=== PATIENT | female | born 2005 | race Caucasian/White ===

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

== ENCOUNTER 2025-03-05 14:43 | Emergency (ER) | payer OTHER, SELFPAY ==
[2025-03-05 14:51] VITALS: BP 132/83; PULSE 102; RESP 16; TEMP 36.8; O2SAT 94; BMI 21.9
[2025-03-05 15:12] LABS: Basophils # 0.1 10^3/uL (0.0-0.1); Basophils % 0.4 %; Hematocrit 41.9 % (36-47); Lymphocytes # 1.3 10^3/uL (1.5-6.5); Lymphocytes % 10.9 %; Mean Corpuscular HGB Conc 35.6 g/dL (30-55); Mean Corpuscular Hemoglobin 29.5 pg (27-33); Mean Platelet Volume 11.6 fL (7.4-10.4); Monocytes # 0.6 10^3/uL (0.2-0.9); Monocytes % 5.2 %; Neutrophils # 9.83 10^3/uL (1.8-8.0); Neutrophils % 83.2 %; Nucleated Red Blood Cells % 0 %; Platelet Count 323 10^3/cmm (157-399); Red Blood Count 5.05 10^6/uL (3.85-5.65); Red Cell Distribution Width 11.9 % (12.1-15.1); White Blood Count 11.82 10^3/uL (4.5-13.0)
[2025-03-05 15:29] LABS: HCG, Serum Qual Negative (Negative)
[2025-03-05 15:37] LABS: Alanine Aminotransferase 13 U/L (0-33); Albumin Level 5.3 g/dL (3.5-5.2); Alkaline Phosphatase 74 U/L (35-105); Anion Gap 20.4 (5-19); Aspartate Amino Transferase 19 U/L (0-32); Blood Urea Nitrogen 6 mg/dL (6-20); Calcium 10.1 mg/dL (8.5-10.5); Carbon Dioxide 23 mmol/L (22-29); Chloride 102 mmol/L (98-107); Creatinine Clr Calc Pharmacy 143.4558; Glomerular Filtration Rate 128.8 mL/min (90-130); Glucose 97 mg/dL (65-115); Lipase 21 U/L (13-60); Osmolality Calculated 292 mOsm/kg (285-295); Potassium 3.4 mmol/L (3.5-5.1); Sodium 142 mmol/L (136-145); Total Bilirubin 0.6 mg/dL (0.15-1.2); Total Protein 8.3 g/dL (6.6-8.7)
--- NOTE | 2025-03-05 16:26 | CTR_ITS ---
PROCEDURE INFORMATION: Exam: CT Abdomen And Pelvis With Contrast Exam date and time: 03/05/2025 5:02 PM Age: 19 years old Clinical indication: Abdominal pain; Additional info: Abd pain TECHNIQUE: Imaging protocol: Computed tomography of the abdomen and pelvis with contrast. Radiation optimization: All CT scans at this facility use at least one of these dose optimization techniques: automated exposure control; mA and/or kV adjustment per patient size (includes targeted exams where dose is matched to clinical indication); or iterative reconstruction. Contrast material: OMNI 350; Contrast volume: 100 ml; Contrast route: INTRAVENOUS (IV); COMPARISON: US abdomen complete* [id number] 05/20/2022 7:30 AM RADIATION DOSE METRICS: Total DLP (mGy-cm): 379.18 FINDINGS: Lungs: Lung bases are clear. No pleural effusion. Liver: Normal. No mass. Gallbladder and biliary ducts: Normal. No calcified stones. No ductal dilation. Pancreas: Normal. No ductal dilation. Spleen: Normal. No splenomegaly. Adrenal glands: Normal. No mass. Kidneys and ureters: Normal. No hydronephrosis. Stomach and bowel: There is diffuse inflammation involving the wall of the colon. No bowel distension noted. Appendix: The appendix is clearly identified and is unremarkable. Intraperitoneal space: Unremarkable. No free air. No significant fluid collection. Vasculature: Unremarkable. No abdominal aortic aneurysm. Lymph nodes: Unremarkable. No enlarged lymph nodes. Urinary bladder: Unremarkable as visualized. Reproductive: Unremarkable as visualized. Bones/joints: Unremarkable. No acute fracture. Soft tissues: Unremarkable. CT/CT abdomen pelvis w con* [id number] IMPRESSION: Diffuse colitis
--- NOTE | 2025-03-05 16:31 | ED_ITS ---
HPI - Abdominal Pain 2 General: Chief Complaint: Abdominal Pain Stated Complaint: abd pain Time Seen by Provider: 03/05/25 14:57 Source: patient Mode of arrival: ambulatory Limitations: no limitations History of Present Illness: 19-year-old female states that she has b een having abdominal pains been going on for months she states been in pants cramping type pains and feeling hungry states she has not been able to tolerate much p.o. has been having vomiting and diarrhea as well. She denies any fever denies any worse improved factors. Associated Symptoms: Reports nausea and vomiting; Denies chills, diarrhea, dysuria and fever(s) Related Data Previous Rx's ?Medication ?Instructions ?Recorded ciprofloxacin HCl 500 mg tablet 500 mg PO BID #14 tabs 03/05/25 (Cipro) hydrocodone 5 mg-acetaminophen 325 1 tab PO Q6H PRN pa in #14 tabs 03/05/25 mg tablet metronidazole 500 mg tablet 500 mg PO Q8H 7 days #21 t abs 03/05/25 ondansetron 4 mg disintegrating 4 mg PO Q6H PRN nausea and 03/05/25 tablet vomiting #14 tabs Allergies Allergy/AdvReac Type Severity Reaction Status Date / Time No Known Allergies Allergy Verified 09/17/24 12:15 Review of Systems 2 Const: Denies: fever(s), chills, body aches or change in appetite ENMT: Denies: throat pain or dental pain Card: Denies: chest pain Resp: Denies: dyspnea GI: Reports: abdominal pain, nausea and vomiting; Denies: diarrhea : Denies: dysuria Musc: Denies: neck pain or back pain Skin/Breast: Denies: rash Neuro: Denies: headache(s) PFSH ED 2 PFSH: Medical History Major depressive disorder, recurrent severe without psychotic features Social History Smoking and tobacco/nicotine status: unknown if used tobacco/nicotine Quit status (tobacco/nicotine): has quit using Year quit tobacco: decemeber 2020 Second hand smoke exposure: No Physical Exam 2 Const: COMMON NORMALS: no acute distress, patient oriented x3 and healthy appearing HENMT: COMMON NORMALS: normocephalic and atraumatic HEAD & SCALP: n ormocephalic and atraumatic Eye: COMMON NORMALS: conjunctivae normal CONJUNCTIVA: Yes conjunctivae normal Neck/C-Spine: COMMON NORMALS: full ROM and supple Chest: COMMONS NORMALS: normal inspection of the chest Resp: COMMON NORMALS: normal respiratory effort Cardio: COMMON NORMALS: regular rate, regular rhythm and No murmurs present (Cardio) RATE: regular rate RHYTHM: regular rhythm GI: COMMON NORMALS: Normal to inspection, nondistended, normoactive bowel sounds present, Soft to palpation, non-tender and no masses PALPATION: Yes Soft to palpation Extremity: COMMON NORMALS: normal to inspection and full ROM Neuro: COMMON NORMALS: patient oriented x3, moves all extremities and no focal motor deficits Psych: COMMON NORMALS: mental status grossly normal, Normal thought process present and cooperative THOUGHT PROCESS: Normal thought process present Skin: COMMON NORMALS: no rashes or lesions noted and no wounds GENERAL SKIN EXAM: no rashes or lesions noted Course 2 Vital Signs: Vital signs: Vital Signs Temperature 98.2 F 03/05/25 14:51 Pulse Rate 102 H 03/05/25 14:51 Respiratory Rate 16 03/05/25 14:51 Blood Pressure 132/83 03/05/25 14:51 Pulse Oximetry 94 03/05/25 14:51 Oxygen Delivery Me thod Room Air 03/05/25 14:51 MDM - Abdominal Pain Medical Decision Making Patient presents here with abdominal pain was found to have a colitis we will start on Cipro Flagyl along with pain meds we will get her follow-up with surgery she is return if worsening. Medical Records I reviewed the patient's medical records. Lab Data I reviewed the patient's lab results. 03/05/25 14:58 03/05/25 14:58 Labs/Radiology: Radiology Impressions Abdomen/Pelvis CT 03/05/25 16:26 IMPRESSION: Diffuse colitis Laboratory Results WBC 11.82 10^3/uL (4.5-13.0) 03/05/25 14:58 RBC 5.05 10^6/uL (3.85-5.65) 03/05/25 14:58 Hgb 14.90 g/dL (12.4-14.8) H 03/05/25 14:58 Hct 41.9 % (36-47) 03/05/25 14:58 MCV 83.0 fl (85-98) L 03/05/25 14:58 MCH 29.5 pg (27-33) 03/05/25 14:58 MCHC 35.6 g/dL (30-55) 03/05/25 14:58 RDW 11.9 % (12.1-15.1) L 03/05/25 14:58 Plt Count 323 10^3/cmm (157-399) 03/05/25 14:58 MPV 11.6 fL (7.4-10.4) H 03/05/25 14:58 Neut % (Auto) 83.2 % 03/05/25 14:58 Lymph % (Auto) 10.9 % 03/05/25 14:58 Orange % (Auto) 5.2 % 03/05/25 14:58 Eos % (Auto) 0.0 % 03/05/25 14:58 Baso % (Auto) 0.4 % 03/05/25 14:58 Neut # (Auto) 9.83 10^3/uL (1.8-8.0) H 03/05/25 14:58 Lymph # (Auto) 1.3 10^3/uL (1.5-6.5) L 03/05/25 14:58 Orange # (Auto) 0.6 10^3/uL (0.2-0.9) 03/05/25 14:58 Eos # (Auto) 0.0 10^3/uL (0.0-0.8) 03/05/25 14:58 Baso # (Auto) 0.1 10^3/uL (0.0-0.1) 03/05/25 14:58 Nucleated RBC % (auto) 0 % 03/05/25 14:58 Nucleated RBCs # 0.0 /100WBC 03/05/25 14:58 Sodium 142 mmol/L (136-145) 03/05/25 14:58 Potassium 3.4 mmol/L (3.5-5.1) L 03/05/25 14:58 Chloride 102 mmol/L (98-107) 03/05/25 14:58 Carbon Dioxide 23 mmol/L (22-29) 03/05/25 14:58 Anion Gap 20.4 (5-19) H 03/05/25 14:58 BUN 6 mg/dL (6-20) 03/05/25 14:58 Creatinine 0.6 mg/dL (0.5-0.9) 03/05/25 14:58 GFR Calculation 128.8 mL/min (90-130) 03/05/25 14:58 Glucose 97 mg/dL (65-115) 03/05/25 14:58 Calculated Osmolality 292 mOsm/kg (285-295) 03/05/25 14:58 Calcium 10.1 mg/dL (8.5-10.5) 03/05/25 14:58 Total Bilirubin 0.6 mg/dL (0.15-1.2) 03/05/25 14:58 AST 19 U/L (0-32) 03/05/25 14:58 ALT 13 U/L (0-33) 03/05/25 14:58 Alkaline Phosphatase 74 U/L (35-105) 03/05/25 14:58 Total Protein 8.3 g/dL (6.6-8.7) 03/05/25 14:58 Albumin 5.3 g/dL (3.5-5.2) H 03/05/25 14:58 Globulin 3.0 g/dL (1.3-4.6) 03/05/25 14:58 Lipase 21 U/L (13-60) 03/05/25 14:58 HCG, Qual Negative (Negative) 03/05/25 14:58 Urine Color Yellow (Yellow) 03/05/25 16:25 Urine Appearance Clear (CLEAR) 03/05/25 16:25 Urine pH 6.0 (5-7) 03/05/25 16:25 Ur Specific Hester 1.004 (1.005-1.030) L 03/05/25 16:25 Urine Protein Negative (Negative) 03/05/25 16:25 Urine Glucose (UA) Negative (Normal) 03/05/25 16: Urine Ketones Trace (Negative) 03/05/25 16:25 Urine Blood Negative (Negative) 03/05/25 16:25 Urine Nitrate Negative (Negative) 03/05/25 16:25 Urine Bilirubin Negative (Negative) 03/05/25 16:25 Urine Urobilinogen 0.2 mg/dL (Negative) 03/05/25 16:25 Ur Leukocyte Esterase Negative (Negative) 03/05/25 16:25 Urine RBC 0-2 /hpf (0-2) 03/05/25 16:25 Urine WBC 0-5 /hpf (0-5) 03/05/25 16:25 Ur Squamous Epith Cells 0-5 /hpf (0-5) 03/05/25 16:25 Amorphous Sediment Not Reportable 03/05/25 16:25 Urine Bacteria None seen /hpf (NONE) 03/05/25 16:25 Hyaline Casts 0-4 /lpf H 03/05/25 16:25 All radiology interpretation(s) finalized by discharge Discharge Plan Discharge Patient Disposition: Home Clinical Impression: Abdominal pain, Colitis Condition: Stable Prescriptions: New hydrocodone-acetaminophen 5-325 mg tablet 1 tab PO Q6H PRN (Reason: pain) Qty: 14 0RF metronidazole 500 mg tablet 500 mg PO Q8H 7 Days Qty: 21 0RF ciprofloxacin HCl [Cipro] 500 mg tablet 500 mg PO BID Qty: 14 0RF ondansetron 4 mg tablet,disintegrating 4 mg PO Q6H PRN (Reason: nausea and vomiting) Qty: 14 0RF Discharge Orders: Discharge ED (Routine); Ordered 03/05/25 Ordered By: Charity Arroyo Referrals: yair [Other] Tyler Blackwell MD [Physician, General Surgery] - 4-7 days Fransico Walden MD [Primary Care Provider, Pediatrics] Discharge Diet: Advance as tolerated Discharge Activity: Resume usual activity Patient Instructions: Abdominal Pain (ED), Colitis (ED), Opioid Safety Print Language: Albanian Coding Level of Care Code ED Recreation Adviser for [employer]
[2025-03-05 16:51] LABS: Bilirubin Urine Negative (Negative); Blood Urine Negative (Negative); Glucose Urine UA Negative (Normal); Ketones Urine Trace (Negative); Leukocyte Esterase Urine Negative (Negative); Nitrate Urine Negative (Negative); Protein Urine Negative (Negative); Specific Gravity, Urine 1.004 (1.005-1.030); Urine Appearance Clear (CLEAR); Urine Color Yellow (Yellow); Urobilinogen Urine 0.2 mg/dL (Negative)
[2025-03-05 16:56] LABS: Add Urine Microscopic? YES; Bacteria Urine None Seen /hpf; Hyaline Casts Urine 0-4 /lpf; RBC Urine 0-2 /hpf (0-2); Squamous Epithelial Cell Urine 0-5 /hpf (0-5); WBC Urine 0-5 /hpf (0-5)
[2025-03-05] MEDS: ondansetron 2 mg/ML SDV 2 mL 4 MG IVP (16:58)
[2025-03-05] MEDS: morphine 4 mg/mL SDV 1 mL IVP (16:58)
[2025-03-05] MEDS: sodium chloride 0.9% 1,000 ML 999 ML IV (16:58)
[2025-03-05 16:59] LABS: Add Urine Culture? No
[2025-03-05] MEDS: iohexol 350 mg/mL 500 mL Btl (per mL) IV (17:08)
[2025-03-05 18:31] VITALS: BP 118/70; PULSE 95; RESP 16; O2SAT 99
--- NOTE | 2025-03-06 08:01 | DCPLANNER ---
Message sent to General surgery-Patient presents here with abdominal pain was found to have a colitis we will start on Cipro Flagyl along with pain meds we will get her follow-up with surgery she is return if worsening.
== END 2025-03-05 18:33 | disposition home or self-care (01) ==
PROVIDERS: Family Medicine; Emergency Provider Emergency Medicine; PCP Pediatrics
DX: R10.9 Unspecified abdominal pain (principal); K52.9 Noninfective gastroenteritis and colitis, unspecified; Z87.891 Personal history of nicotine dependence
CPT/HCPCS: 36415; 74177; 80053; 81001; 83690; 84703; 85025; 96361; 96374; 96375; 99285; J2270; J2405; J7030